=== PATIENT | male | born 1955 | race Caucasian/White ===

== ENCOUNTER 2023-12-24 08:17 | Day surgery (SDC) | payer MEDICARE, OTHER, SELFPAY ==
[2023-12-24] VITALS (23 sets, daily range): BP systolic 80–159; BP diastolic 61–99; PULSE 53–75; RESP 12–20; TEMP 35.9–36.9; O2SAT 86–97; BMI 27.5
[2023-12-24] MEDS: SODIUM CHLORIDE 0.9 % (FLUSH) 10 ML SYRINGE IVF (09:00)
[2023-12-24] MEDS: LACTATED RINGERS 1000 ML 1,000 ML 100 ML IV ×2 (09:00→11:48)
[2023-12-24] MEDS: OXYCODONE (CR) 10 MG TAB.ER.12H PO (09:30)
[2023-12-24] MEDS: ACETAMINOPHEN 500 MG TABLET 1000 MG PO ×3 (09:30→21:15)
[2023-12-24] MEDS: CELECOXIB 200 MG CAPSULE PO (09:30)
[2023-12-24] MEDS: MIDAZOLAM HCL 1 MG/ML inj IVP (10:00)
[2023-12-24] MEDS: fentaNYL 100 MCG/2 ML inj IVP (10:00)
--- NOTE | 2023-12-24 10:10 | SUR.PREOP ---
TIME?OUT:?957, left hip PT/RN/MDA?VERIFICATION?OF?SURGICAL?SITE,?PROCEDURE,?AND?CONSENT OBTAINED?PRIOR?TO?INVASIVE?PROCEDURE.
--- NOTE | 2023-12-24 10:30 | XR_ITS ---
Patient: CHRIS JACKOSN Facility:?[facility] Patient ID:?[id number] Site Patient ID:?[id number]. Site :?[id number] Study:?XRay-Hip Left INTRA OP-12/24/2023 12:40:05 PM Ordering Physician:TUNG Final Report: Indication: Left Total Hip, AA Technique: AP hip fluoroscopic images. Fluoroscopy time 69.4 seconds. Findings/Impression: Hardware from a left total hip arthroplasty is in satisfactory position. Dictated by Artem Avila MD @ 12/25/2023 10:07:17 AM Signed by:?Artem Avila MD @12/25/2023 10:07:17 AM (Electronic Signature)
[2023-12-24] MEDS: TRANEXAMIC ACID 100 MG/ML INJ 1000 MG IV (10:50)
[2023-12-24] MEDS: CEFAZOLIN 2 GM INJ IVP (10:50)
--- NOTE | 2023-12-24 11:43 | W.ANESCHARGE ---
Anesthesia Charges Start Date/Time Anesthesia Start Date: 12/24/23 Anesthesia Start Time: 11:41 Stop Date/Time Anesthesia Stop Date: 12/24/23 Anesthesia Stop Time: 13:19
--- NOTE | 2023-12-24 11:43 | W.PM.NB ---
Nerve Block Nerve Block Time Seen by Provider: 10:06 Date Seen: 12/24/23 Type of block requested by surgeon for post-operative analgesia: HAYDER/LFCN Side: left Time out performed: Yes Verification of patient name: Yes Verification of date of : Yes Site marking: site marked Name of person performing procedure: Lino Continuous monitoring Was continuous monitoring of O2 sat, B/P, cardiac rehabilitation program director, recorded every 15 minutes?: Yes Procedure Checklist: sterile prep, needles and gloves Ultrasound guided. Images saved: Yes Medications given in 5ml increments after negative aspiration: Ropivicaine %: 0.5 mL: 30 Needle gauge: 20 Decadron (mg): 10 Precedex (mcg): 25 Patient tolerated procedure well: Yes Additional comments: Needle noted below psoas tendon needle noted adjacent to LFCN Block Charges Block Charge (with Pro Fee): Other Periph Nerve Block Use of Ultrasound Machine for Block: Yes- US Guidance/pain block
--- NOTE | 2023-12-24 12:24 | XR_ITS ---
Patient: CHRIS JACKSON Facility:?[facility] Patient ID:?[id number] Site Patient ID:?[id number]. Site :?[id number] Study:?XRay-Hip Left POST OP-12/24/2023 1:51:22 PM Ordering Physician:TUGN Final Report: Indication: POST OP LT MARLA Technique: AP hip centered pelvis and lateral view left hip Findings/Impression: Hardware from a left total hip arthroplasty is in satisfactory position. Bone alignment is normal. No sign of acute fracture. Postop changes are within normal limits. Stable appearance of the right iliac bone Dictated by Artem Avila MD @ 12/25/2023 10:08:07 AM Signed by:?Artem Avila MD @12/25/2023 10:08:07 AM (Electronic Signature)
--- NOTE | 2023-12-24 12:26 | PM.ORPRC ---
Procedure Note Date of procedure: 12/24/23 Procedure: PREOPERATIVE DIAGNOSIS: Left hip osteoarthritis POSTOPERATIVE DIAGNOSIS: Left hip osteoarthritis NAME OF OPERATION: Left total hip arthroplasty SURGEON: Howard Tinsley MD SUTURE WINDER HAND: Kiara Howe PA-C, TREV Conley IMPLANTS: 1. [employer] [place] # 52 sector ingrowth cup 2. 36 x 52 +4 neutral polyethylene 3. [place] # 13 standard collared ingrowth stem 4. 36 + 5 ceramic femoral head ANESTHESIA: General ESTIMATED BLOOD LOSS: 800 cc COMPLICATIONS: None SPECIMENS: None DRAINS: None PREOPERATIVE ANTIBIOTICS: Ancef 2 grams INDICATIONS: The patient is a 68-year-old with a longstanding history of severe, unrelenting left hip pain secondary to end-stage left hip osteoarthritis. Despite appropriate nonoperative management, including activity modification, use of an assist device, anti-inflammatories, [id number] pain medication, physical therapy and injections, they continue to have pain and disability. Operative intervention was offered. The risks, benefits and expected outcomes were discussed in detail. These included but were not limited to: Infection, bleeding, injury to blood vessel or nerve, venous thromboembolism. All questions were answered to their satisfaction. Use of an operations administrative assistant was necessary throughout the case for patient positioning and safety, soft tissue retraction and closure. PROCEDURE: The patient was placed supine on the [place] table. General anesthesia was administered. The operations administrative assistant made sure the patient was properly positioned. The left hip was prepped and draped in the usual sterile fashion. The image intensifier was brought in for a perfect AP pelvis and a perfect double tear drop AP view of each hip which were used for intraoperative templating with our fluoroscopic guide. An oblique incision was made 3 cm distal and 3 cm lateral to the anterior superior iliac spine. The operations administrative assistant retracted the soft tissues to protect them. Subcutaneous dissection was taken with electrocautery to the superficial fascia. The fascia was divided in line with the incision. Blunt dissection was carried medially to the tensor fascia vilma and sartorius interval. Deep dissection was carried with electrocautery. The circumflex vessels were cauterized and divided. The capsule was exposed and then divided in a T-fashion, tagged with #1 Ethibond sutures. Retractors were placed in the joint, held by the operations administrative assistant. The corkscrew was placed in the femoral head. The neck cut was made in the subcapital region. We made a second neck cut more distal. The napkin ring of bone was removed. The femoral head was removed intact. Acetabular retractors were placed, held by the operations administrative assistant. The labrum was sharply debrided. The capsule was released. The 43 mm reamer was used to the true medial wall. We then enlarged in 2 mm increments using the image intensifier for our reamer placement. We impacted the cup which had excellent purchase. We placed the polyethylene. Attention was then turned to the proximal femur. The limb was placed in 140 degrees of external rotation, maximum extension and adduction. A significant amount of time was spent releasing the capsule to allow us to deliver the femur into the wound and complete the femoral side safely. Retractors were held by the operations administrative assistant throughout the femoral preparation. The steam box tender and canal finder were used. Broaches were used to a stable size. The calcar reamer was used. Trial components were placed. The hip was reduced and was found to be stable with appropriate soft tissue tension. Length and offset had been nicely restored using the image intensifier and our fluoroscopic guide. Trial components were removed. The stem was impacted. We placed the femoral head. Again, the hip was reduced and was found to be stable with appropriate soft tissue tension. Length and offset had been nicely restored. The operations administrative assistant did a three minute dilute Betadine solution soak. The operations administrative assistant irrigated the wound with 3 liters of normal saline via pulse lavage. The operations administrative assistant repaired the anterior capsule with a #1 Vicryl and our previously placed Ethibond sutures. The operations administrative assistant closed the fascia over the tensor fascia vilma with a #1 PDO Stratafix, subcutaneous tissues with 2-0 Vicryl, skin with a running 3-0 Stratafix and glue. A dry dressing was applied by the operations administrative assistant. Sponge and needle counts were correct x 2. The patient tolerated the procedure well; there were no apparent complications. They were awakened and extubated in the operating room, sent to the Post-Anesthesia Care Unit in satisfactory condition. PLAN: 1. The patient will be mobilized with physical therapy, weight-bearing as tolerates 2. Xarelto x 5 days then aspirin x 30 days will be used for DVT prophylaxis 3. The patient will be discharged once medically appropriate
--- NOTE | 2023-12-24 13:23 | W.ANESCHARGE ---
Anesthesia Charges Start Date/Time Anesthesia Start Date: 12/24/23 Anesthesia Start Time: 11:41 Stop Date/Time Anesthesia Stop Date: 12/24/23 Anesthesia Stop Time: 13:19
[2023-12-24] MEDS: fentaNYL 100 MCG/2 ML inj 50 MCG IVP (13:58)
[2023-12-24] MEDS: LACTATED RINGERS 1000 ML 1,000 ML 75 ML IV ×2 (14:05→14:28)
[2023-12-24] MEDS: OXYCODONE 5 MG TABLET PO ×2 (14:51→22:35)
--- NOTE | 2023-12-24 15:23 | P.IMCN_ITS ---
Date of Consult Consult date: 12/24/23 Requesting Physician: Orthopedics Primary Care Provider: Not a Local Provider Consult Narrative Narrative: HOSPITALIST CONSULT Procedure: NAME OF OPERATION: Left total hip arthroplasty SURGEON: Howard Tinsley MD ANESTHESIA: General ESTIMATED BLOOD LOSS: 800 cc The hospital medicine team was asked by the orthopedic surgery team to manage t he patient's hypertension and postop blood loss/anemia. 100 mL estimated blood loss. Preop hemoglobin 16.6 I reviewed his H&P from [facility] that is in his physical chart. I reviewed the Chem 14 and CBC. There have been no perioperative complications. Updated and reviewed the active medical problems, past medical history, past surgical history, social history, allergies and medications in our electronic EMR. PHYSICAL EXAM: CODE STATUS: FULL CODE CONSTITUTIONAL: Conversive, good historian. A/O. Knows setting and context. VITAL SIGNS: see record. HEENT: Normocephalic, atraumatic. PERRL, EOMI, conjunctivae pink, no scleral icterus. Ears and nose externally normal. Pharynx normal. NECK: No JVD. No carotid bruit, no thyromegaly, no adenopathy. CHEST: Clear to auscultation bilaterally HEART: S1 and S2 normal. ABDOMEN: Flat, soft, nontender. Normal bowel sounds. Moderately obese. EXTREMITIES: No edema. MUSCULOSKELETAL: Left knee surgical dressing intact. Dry. NEURO: Cranial nerves intact. Mentation normal. Normal affect. SKIN: No rashes, petechiae, concerning changes PSYCHIATRIC: Mentation normal. INVESTIGATIONS: EMR Reviewed; Pre-OP Reviewed DISPOSITION: DVT: Agree with Ortho team decision GI: PO intake [facility] Medical History (Updated 12/24/23 @ 15:33 by Monique Farah MD) Hx of smoking ?Z87.891 - Personal history of nicotine dependence (ICD-10) Hx of basal cell carcinoma ?Z85.828 - Personal history of other malignant neoplasm of skin (ICD-10) History of Lyme disease ?Z86.19 - Personal history of other infectious and parasitic diseases (ICD- 10) Intention tremor ?G25.2 - Other specified forms of tremor (ICD-10) Hearing loss ?H91.90 - Unspecified hearing loss, unspecified ear (ICD-10) GERD (gastroesophageal reflux disease) ?K21.9 - Gastro-esophageal reflux disease without esophagitis (ICD-10) PND (post-nasal drip) ?R09.82 - Postnasal drip (ICD-10) Hyperlipidemia ?E78.5 - Hyperlipidemia, unspecified (ICD-10) Hypertension ?I10 - Essential (primary) hypertension (ICD-10) Surgical History (Updated 12/24/23 @ 15:32 by Monique Farah MD) Status post total hip replacement, left ?Z96.642 - Presence of left artificial hip joint (ICD-10) 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) ?Z96.641 - Presence of right artificial hip joint (ICD-10) Social History What is your current living situation?: I presently have a place to live Problems where you live: no known problems In the past 12 months, utilities in danger of being shut off: no In past 12 months, lack of transportation kept you from medical appts, meetings, work, or getting things needed for daily living: no In the past 12 mos, have been you worried that your food would run out before you had money to buy more?: never true In the past 12 mos, the food you bought just didn't last and you didn't have money to buy more?: never true Highest level of school completed/degree received: decline to answer Smoking Status: Former smoker Do you use any of these nicotine containing products: None How often do you have a drink containing alcohol: 4 or more times a week Alcohol type: hard liquor How many standard drinks containing alcohol do you have on a typical day: 1 or 2 AUDIT-C Alcohol total score: 4 Non-prescribed substance use: denies use Caffeine: No How often does anyone, including family, friends and others, physically hurt you : never How often does anyone, including family, friends and others, insult or talk down to you: never How often does anyone, including family, friends and others, threaten you with harm: never How often does anyone, including family, friends and others, scream or curse at you: never service: No Meds Home Medications and Allergies Home Medications Medication Instructions Recorded Confirmed Type atorvastatin 40 mg tablet 40 mg PO DAILY 11/04/23 12/24/23 History metoprolol succinate 25 mg 25 mg PO DAILY 12/24/23 12/24/23 History tablet,extended release 24 hr Allergies Allergy/AdvReac Type Severity Reaction Status Date / Time adhesive Allergy Unknown Verified 12/24/23 08:35 Exam Const: Vital Signs, click to edit/add: Vital Signs - 24 hr 12/24/23 09:02 12/24/23 10:00 12/24/23 10:10 Temperature 98.4 F Pulse Rate 58 L 60 57 L Pulse Rate [Right Pulse Oximeter] Respiratory Rate 20 20 20 Blood Pressure 156/97 H 153/85 H 134/92 H Blood Pressure [Le ft Arm] Pulse Oximetry 97 97 95 Oxygen Delivery Me thod Room Air Nasal Cannula Nasal Cannula Oxygen Flow Rate 3 3 12/24/23 10:20 12/24/23 13:15 12/24/23 13:20 Temperature 96.7 F L Pulse Rate 56 L 59 L 57 L Pulse Rate [Right Pulse Oximeter] Respiratory Rate 20 18 16 Blood Pressure 139/89 122/69 80/69 L Blood Pressure [Le ft Arm] Pulse Oximetry 96 95 95 Oxygen Delivery Me thod Nasal Cannula Room Air Room Air Oxygen Flow Rate 3 12/24/23 13:25 12/24/23 13:30 12/24/23 13:35 Temperature Pulse Rate 58 L 53 L 55 L Pulse Rate [Right Pulse Oximeter] Respiratory Rate 18 16 12 Blood Pressure 107/61 112/67 101/68 Blood Pressure [Le ft Arm] Pulse Oximetry 93 95 94 Oxygen Delivery Me thod Room Air Room Air Room Air Oxygen Flow Rate 12/24/23 13:40 12/24/23 13:50 12/24/23 14:03 Temperature 97.2 F L Pulse Rate 56 L 56 L 57 L Pulse Rate [Right Pulse Oximeter] Respiratory Rate 12 12 12 Blood Pressure 105/67 119/62 112/72 Blood Pressure [Le ft Arm] Pulse Oximetry 93 96 96 Oxygen Delivery Me thod Room Air Room Air Room Air Oxygen Flow Rate 12/24/23 14:10 12/24/23 14:15 12/24/23 14:30 Temperature 97 F L 97 F L 97.2 F L Pulse Rate 58 L 55 L Pulse Rate [Right Pulse Oximeter] 58 L Respiratory Rate 18 18 16 Blood Pressure 129/74 115/69 Blood Pressure [Le ft Arm] 129/74 Pulse Oximetry 97 97 93 Oxygen Delivery Me thod Room Air Room Air Room Air Oxygen Flow Rate Assessment and Plan Assessment and plan (1) Status post total hip replacement, left: Problem comment: 12/24/23 Dr. Tinsley [facility] medicine team is happy to follow the patient through to discharge. I put hold parameters on metoprolol in the morning. He can have his statin tonight. I agree with aspirin b.i.d. after Xarelto. I expect a routine postoperative course. Status: Acute (2) Intention tremor: Status: Acute (3) GERD (gastroesophageal reflux disease): Status: Acute (4) Hearing loss: Status: Acute (5) Hyperlipidemia: Problem comment: Continue with prescribe statin. Status: Acute (6) Hypertension: Problem comment: Monotherapy with metoprolol. Hold parameters for postop day 1. Status: Acute
--- NOTE | 2023-12-24 16:01 | REH.PT ---
Pt sitting up in recliner upon approach. Reports transfer went well with nursing staff. Educated on HEP, POC and post op restrictions. Pt has outpatient PT scheduled to begin next week in [place]. Will see tomorrow at 9am for PT session.
[2023-12-24] MEDS: CEFAZOLIN 2 GM in 0.9 % SODIUM CHLORIDE Mini-bag 100 ML IVPB (16:32)
--- NOTE | 2023-12-24 19:06 | PC.NURSE ---
End of shift: Pt arrived to the floor from surgery at 1415. Pt is A&O, afebrile and VSS with exception to O2 requirements. Pt O2 dipped down to 86% on RA so he was placed on 2L NC. Rates back pain at 7-8/10 and left hip pain 2-4/10. PRN oxycodone given x1 dose last at 1450 as well as scheduled Tylenol. PIV in left hand infusing LR @ 75 mL/hr. Pt is Ax1 with gait belt and 2ww for transfers and ambulation. He is voiding and has been up in the chair most of the afternoon. Tolerated fruit and judi crackers for dinner with no nausea. Reports his last BM was 3/6 and he usually has one daily. ?
[2023-12-24] MEDS: SENNOSIDES 1 TAB TABLET 2 TAB PO (21:14)
--- NOTE | 2023-12-24 23:39 | PC.NURSE ---
End of shift note [id number]: Pt alert & oriented x 4 and pt able to make needs known. VSS and pt has been afebrile. Pt currently on 1 liter of oxygen via NC with O2 sat of 92% on RA. Pt transferring with SBA using FWW and GB. Dressing to L hip noted to be C/D/I. IV SL due to adequate po intake. Pt has been continent of bladder using toilet. CMS to LLE intact with LUCILLE stockings worn. PRN Oxycodone administered at HS for report of 3/10 L hip pain.
[2023-12-25] MEDS: CEFAZOLIN 2 GM in 0.9 % SODIUM CHLORIDE Mini-bag 100 ML IVPB (00:28)
[2023-12-25 00:30] VITALS: BP 131/73; PULSE 55; RESP 18; TEMP 36.6; O2SAT 97
[2023-12-25] MEDS: OXYCODONE 5 MG TABLET PO ×4 (01:32→10:48)
[2023-12-25] MEDS: ACETAMINOPHEN 500 MG TABLET 1000 MG PO ×2 (03:35→09:35)
[2023-12-25 03:40] VITALS: BP 136/76; PULSE 56; RESP 18; TEMP 36.7; O2SAT 99
[2023-12-25 06:14] LABS: Basophils Absolute Auto 0.01 K/uL (0.00-0.30); Basophils Percent Auto 0.1 % (0.0-3.0); Eosinophils Absolute Auto 0.01 K/uL (0.00-0.50); Eosinophils Percent Auto 0.1 % (0.0-7.0); Hematocrit 38.1 % (37.0-53.0); Hemoglobin* 13.1 gm/dL (13.5-17.5); Immature Granulocytes Abs Auto 0.01 K/uL (0.00-0.30); Immature Granulocytes Pct Auto 0.1 %; Lymphocytes Percent Auto 11.9 % (20-44); Mean Corpuscular HGB Conc 34 gm/dL (32-36); Mean Corpuscular Hemoglobin 34 pg (26-34); Mean Corpuscular Volume 98 fL (80-100); Neutrophils Absolute Auto 5.19 K/uL (1.7-7.0); Neutrophils Percent Auto 70.8 % (42.0-72.0); Platelet Count* 156 K/uL (140-440); RDW Coefficient of Variation % 12.4 % (11.5-15.5); Red Blood Count 3.88 m/uL (4.30-5.90); White Blood Count* 7.34 K/uL (4.50-11.00)
[2023-12-25 06:16] LABS: Slide Review Reflex No
[2023-12-25 06:27] LABS: Sodium* 138 mmol/L (135-149)
[2023-12-25 06:30] LABS: Creatinine* 0.5 mg/dL (0.5-1.5); Est. Creatinine Clearance* 74.25; Estimated Glomerular Filt Rate 110 ml/min; Potassium* 3.6 mmol/L (3.6-5.1)
[2023-12-25 06:31] LABS: Blood Urea Nitrogen* 9 mg/dL (7-30)
[2023-12-25 07:00] VITALS: BP 147/81; PULSE 69; RESP 16; TEMP 36.7; O2SAT 93
[2023-12-25] MEDS: RIVAROXABAN 10 MG TABLET PO (09:29)
[2023-12-25] MEDS: SENNOSIDES 1 TAB TABLET 2 TAB PO (09:29)
--- NOTE | 2023-12-25 09:57 | P.ORPN_ITS ---
Subjective Subjective Time Seen by Provider: 09:00 Date Seen: 12/25/23 Principal diagnosis: Day 1 s/p left total hip arthroplasty Interval history: Prior to our conversation, I witnessed Escobar ambulating well down the hallway with PT. He is moving quite well with assistance of a walker. Escobar is doing well postoperatively. He reports feeling goofy during our conversation, which he attributes to taking 2 tablets oxycodone shortly before his exercises with PT. Pain is well managed with Oxycodone, acetaminophen and icing PRN. Denies: lightheadedness, dizziness, chest pain, SOB, fever/chills, nausea/vomiting, numbness/tingling distally. Patient has not yet had a BM postop, but admits to lots of flatulence. Patient admits to frequent urination, which is new since his surgery. He reports urination every hour. Outpatient PT scheduled to begin 12/30 at [facility] in [place]. Ortho Exam Narrative Exam Narrative: Incision/Dressing: Dressing appears clean and dry. No drainage present. Mepilex intact. Left hip appears moderately swollen but supple with no obvious erythema, fluctuance or excessive warmth. No ecchymosis or erythematous streaking. Warmth around the wound is appropriate. Ice is being utilized as needed. CMS: Intact distally with 2+ Dorsalis pedis and Posterior Tibial pulses. 5/5 motor strength dorsal and plantar flexion. Confirmed sensation distally. Intact straight leg raise. Calf: Bilateral calves are supple, with no swelling, pain, tenderness, erythema, discoloration or coolness to the touch. Constitutional: Patient is alert and oriented x3. Patient is in no acute distress and converses without labored breathing. Patient is able to make decisions and demonstrates good insight. Patient is pleasant and cooperative. Affect is full range and appropriate for the circumstances. Const Vital Signs, click to edit/add: Vital Signs - 24 hr 12/24/23 10:00 12/24/23 10:10 12/24/23 10:20 Temperature Pulse Rate 60 57 L 56 L Pulse Rate [Right Pulse Oximeter] Respiratory Rate 20 20 20 Blood Pressure 153/85 H 134/92 H 139/89 Blood Pressure [Left Arm] Pulse Oximetry 97 95 96 Oxygen Delivery Method Nasal Cannula Nasal Cannula Nasal Cannula Oxygen Flow Rate 3 3 3 12/24/23 13:15 12/24/23 13:20 12/24/23 13:25 Temperature 96.7 F L Pulse Rate 59 L 57 L 58 L Pulse Rate [Right Pulse Oximeter] Respiratory Rate 18 16 18 Blood Pressure 122/69 80/69 L 107/61 Blood Pressure [Left Arm] Pulse Oximetry 95 95 93 Oxygen Delivery Method Room Air Room Air Room Air Oxygen Flow Rate 12/24/23 13:30 12/24/23 13:35 12/24/23 13:40 Temperature 97.2 F L Pulse Rate 53 L 55 L 56 L Pulse Rate [Right Pulse Oximeter] Respiratory Rate 16 12 12 Blood Pressure 112/67 101/68 105/67 Blood Pressure [Left Arm] Pulse Oximetry 95 94 93 Oxygen Delivery Method Room Air Room Air Room Air Oxygen Flow Rate 12/24/23 13:50 12/24/23 14:03 12/24/23 14:10 Temperature 97 F L Pulse Rate 56 L 57 L Pulse Rate [Right Pulse Oximeter] 58 L Respiratory Rate 12 12 18 Blood Pressure 119/62 112/72 Blood Pressure [Left Arm] 129/74 Pulse Oximetry 96 96 97 Oxygen Delivery Method Room Air Room Air Room Air Oxygen Flow Rate 12/24/23 14:15 12/24/23 14:30 12/24/23 14:45 Temperature 97 F L 97.2 F L 97 F L Pulse Rate 58 L 55 L 60 Pulse Rate [Right Pulse Oximeter] Respiratory Rate 18 16 16 Blood Pressure 129/74 115/69 102/68 Blood Pressure [Left Arm] Pulse Oximetry 97 93 86 L Oxygen Delivery Method Room Air Room Air Room Air Oxygen Flow Rate 12/24/23 15:00 12/24/23 15:00 12/24/23 15:30 Temperature 97 F L 96.9 F L Pulse Rate 58 L 54 L Pulse Rate [Right Pulse Oximeter] 54 L Respiratory Rate 16 16 Blood Pressure 141/89 H 159/99 H Blood Pressure [Left Arm] Pulse Oximetry 97 96 Oxygen Delivery Method Nasal Cannula Room Air Oxygen Flow Rate 2 12/24/23 15:45 12/24/23 16:15 12/24/23 17:15 Temperature 96.9 F L 97.7 F 97.8 F Pulse Rate 58 L 62 64 Pulse Rate [Right Pulse Oximeter] Respiratory Rate 16 16 16 Blood Pressure 148/86 H 148/81 H 156/96 H Blood Pressure [Left Arm] Pulse Oximetry 94 95 94 Oxygen Delivery Method Room Air Nasal Cannula Nasal Cannula Oxygen Flow Rate 2 2 12/24/23 19:15 12/24/23 21:23 12/25/23 00:30 Temperature 97.6 F 97.0 F L Pulse Rate 75 65 Pulse Rate [Right Pulse Oximeter] Respiratory Rate 16 16 18 Blood Pressure 113/75 113/62 Blood Pressure [Left Arm] Pulse Oximetry 97 92 Oxygen Delivery Method Nasal Cannula Nasal Cannula Oxygen Flow Rate 2 1 12/25/23 00:30 12/25/23 03:40 12/25/23 07:00 Temperature 97.8 F 98.1 F 98.0 F Pulse Rate Pulse Rate [Right Pulse Oximeter] 55 L 56 L 69 Respiratory Rate 18 18 16 Blood Pressure Blood Pressure [Left Arm] 131/73 136/76 147/81 H Pulse Oximetry 97 99 93 Oxygen Delivery Method Nasal Cannula Room Air Room Air Oxygen Flow Rate 1 12/25/23 07:00 Temperature Pulse Rate Pulse Rate [Right Pulse Oximeter] 69 Respiratory Rate 16 Blood Pressure Blood Pressure [Left Arm] Pulse Oximetry Oxygen Delivery Method Oxygen Flow Rate Assessment and Plan Assessment and plan (1) Status post total hip replacement, left: Problem details: 12/24/23 Dr. Tinsley Status: Acute Assessment and Plan: - Complete 23 hour perioperative antibiotics. - PT/OT consults for education and assistance. Outpatient PT scheduled to begin 12/30 at [facility]. - Weight bear as tolerated with a walker for assistance. - Prescribed analgesics as needed. Patient is content with current narcotic medications. Minimize narcotic pain medication use; wean off and discontinue as soon as possible. - DVT prophylaxis: Xarelto x 5 days followed by aspirin 81 mg BID x 30 days. Also bilateral knee high Philip stockings (x 1 month), frequent ambulation and ankle pumps when sedentary. - Social consult for discharge planning. - Anticipate patient will be discharged to home this afternoon if the patient remains medically stable, pain is controlled and is safe with ambulation. - Return to clinic in 1 week for a wound check. Mepilex dressing will be removed at this appointment. Remove sooner if dressing becomes saturated. - Return to clinic in [address] Tinsley. - Phone Orthopedics with any questions or concerns. [phone]
--- NOTE | 2023-12-25 12:17 | PC.NURSE ---
Dscharge-- Very pleasant and cooperative, alert and oriented patient was discharged to home via wheelchair with at approximately 1055. VSS and pt is afebrile. SPO2 maintained >90% on RA. Pain appears well managed with scheduled Tylenol and Oxycodone PRN. Dressing to left hip is C/D/I and CMS WNL. LS CTA. He denied nausea and tolerated a regular diet without difficulty. Pt is passing flatus, but had no post op BM prior to discharge. Discharge education was provided including diagnosis info, symptoms to report, medications and follow up plan. No further questions asked. SL was removed with tip intact.
== END 2023-12-25 10:55 | disposition home or self-care (01) ==
LOC: OR 08:19 → MEDSURG 08:22
PROVIDERS: Visit Provider Orthopaedic Surgery
PROC: (CPT 27130; principal; 2023-12-24 10:30)
DX: M16.12 Unilateral primary osteoarthritis, left hip (principal); G89.18 Other acute postprocedural pain; D62 Acute posthemorrhagic anemia; G25.2 Other specified forms of tremor; I10 Essential (primary) hypertension; K21.9 Gastro-esophageal reflux disease without esophagitis; E78.5 Hyperlipidemia, unspecified; H91.8X3 Other specified hearing loss, bilateral; R35.0 Frequency of micturition
CPT/HCPCS: 27130; 01214; 36415; 64450; 73501; 76000; 76942; 82565; 84132; 84295; 84520; 85025; 86850; 86900; 86901; 97116; 97161; 97165; 97535; A9270; C1776; J0690; J1100; J2250; J2405; J2704; J2710; J3010; J7120